=== PATIENT | female | born 1985 | race American Indian/Alaskan Native ===

== ENCOUNTER 2018-03-16 08:26 | Inpatient (IN) | payer SELFPAY ==
[2018-03-16 10:41] LABS: HCG Qualitative,Urine Negative (Negative)
[2018-03-16 10:44] LABS: Bacteria,Urine 1+ /HPF (Negative); Mucus,Urine 3+ /HPF
[2018-03-16 10:51] LABS: Bilirubin,Urine NEG (Negative); Blood,Urine NEG (Negative); Color,Urine Amber (Yellow)
[2018-03-16] MEDS ORDERED: NACL 0.9% 1000 ML 1,000 ML IV ONE (10:58)
[2018-03-16] MEDS ORDERED: ZOFRAN IV ONE (10:58)
[2018-03-16] MEDS ORDERED: MORPHINE IV ONE (10:58)
--- NOTE | 2018-03-16 11:03 | Emergency Department Report ---
<ZO MONROE - Last Filed: 03/16/18 16:41> ED General Adult HPI - General Chief complaint: Abdominal Pain Stated complaint: STOMACH PAIN Time Seen by Provider: 03/16/18 10:35 Source: patient Mode of arrival: Ambulatory Limitations: No Limitations - History of Present Illness Initial comments: She presents to emergency Department with chief complaint of abdominal pain started 2 days ago. Patient states she has a history of ovarian cysts but this feels different. She describes the pain as sharp in nature and radiating into her Rectum. Also complains nausea but denies vomiting or diarrhea -: Sudden Location: abdomen Radiation: other (pelvis) Severity scale (0 -10): 8 Quality: sharp, constant Consistency: constant Improves with: none Worsens with: movement Associated Symptoms: denies other symptoms Treatments Prior to Arrival: none - Related Data Allergies Allergy/AdvReac Type Severity Reaction Status Date / Time No Known Allergies Allergy Verified 03/16/18 09:12 ED Review of Systems Comment: All other systems reviewed and negative Constitutional: denies: chills, fever Eyes: denies: eye pain, eye discharge, vision change ENT: denies: ear pain, throat pain Respiratory: denies: cough, shortness of breath, wheezing Cardiovascular: denies: chest pain, palpitations Endocrine: no symptoms reported Gastrointestinal: abdominal pain. denies: nausea, diarrhea Genitourinary: denies: urgency, dysuria, discharge Musculoskeletal: denies: back pain, joint swelling, arthralgia Skin: denies: rash, lesions Neurological: denies: headache, weakness, paresthesias Psychiatric: denies: anxiety, depression Hematological/Lymphatic: denies: easy bleeding, easy bruising ED Past Medical Hx - Past Medical History Previous Medical History?: Yes Additional medical history: PID, ovarian cyst - Surgical History Past Surgical History?: No - Social History Smoking Status: Current Every Day Smoker Substance Use Type: Alcohol, Marijuana ED Physical Exam - General Limitations: No Limitations General appearance: alert, in no apparent distress - Head Head exam: Present: atraumatic, normocephalic - Eye Eye exam: Present: normal appearance, PERRL, EOMI - ENT ENT exam: Present: mucous membranes dry - Neck Neck exam: Present: normal inspection - Respiratory Respiratory exam: Present: normal lung sounds bilaterally. Absent: respiratory distress, wheezes, rales, rhonchi - Cardiovascular Cardiovascular Exam: Present: regular rate, normal rhythm. Absent: systolic murmur, diastolic murmur, rubs, gallop - GI/Abdominal GI/Abdominal exam: Present: soft, tenderness (diffusely tender to palpation), normal bowel sounds. 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 Absent: motor sensory deficit - Psychiatric Psychiatric exam: Present: normal affect, normal mood - Skin Skin exam: Present: warm, dry, intact, normal color. Absent: rash ED Medical Decision Making - Lab Data Result diagrams: 03/16/18 11:11 03/16/18 11:11 ED Disposition Clinical Impression: Tubo-ovarian abscess, Abdominal pain, Pelvic pain, Acute PID (pelvic inflammatory disease) Disposition: OP ADMIT IP TO THIS HOSP Condition: Stable Referrals: ARLINE LOUIS MD [Primary Care Provider] - 3-5 Days <BLAKE HERNANDEZ - Last Filed: 03/16/18 19:52> ED Review of Systems ROS: Stated complaint: STOMACH PAIN Other details as noted in HPI ED Course Vital Signs 03/16/18 03/16/18 03/16/18 09:12 11:21 18:18 Temperature 98.2 F 98.3 F Pulse Rate 88 86 Respiratory 18 16 16 Rate Blood Pressure 125/78 Blood Pressure 110/76 [Left] O2 Sat by Pulse 98 97 Oximetry ED Medical Decision Making - Lab Data Result diagrams: 03/16/18 11:11 03/16/18 11:11 - Radiology Data Radiology results: report reviewed Referring Physician: ZO MONROE Patient Name: SHANNAN VARGHESE Date of : 1985 Sex: Female Report Date: 2018-03-16 Report Status: Finalized Findings [facility] [address] [place] [address] Ultrasound Report Signed Patient: SHANNAN VARGHESE MR#: [id number] : 1985 Acct:[id number] Age/Sex: 32 / F ADM Date: 03/16/18 Loc: ED Attending Dr: Ordering Physician: ZO MONROE MD Date of Service: 03/16/18 Procedure(s): US pelvic complete Accession Number(s): [id number] cc: ZO MONROE MD FINAL REPORT PROCEDURE: US PELVIC COMPLETE TECHNIQUE: Real-time transabdominal sonography in multiple planes of pelvis was performed with image documentation. This examination was performed without Doppler. Vascular abnormalities, including ovarian torsion, will not be detectable without Doppler evaluation. CPT 80548 HISTORY: pelvic pain/Tubo Ovarian Abscess COMPARISON: No prior studies are available for comparison. FINDINGS: The report for this exam is generated using images from both the transabdominal and the transvaginal scan. The uterus is visualized in the midline and is anteverted measuring 7.4 x 3.2 x 5.3 centimeter. No uterine masses are seen. No evidence of intrauterine . The endometrial stripe measures 7 millimeters and is unremarkable. There is a complex density seen posterior to the uterus. This is also visualized on the CT scan. This appears to be oriented transversely measuring 9.8 x 2.9 x 10.3 centimeters. On this exam this appears to have a slightly thickened wall, on the CT scan there appears to be loop of bowel with some adjacent fluid. This may represent a loop of bowel resting in a small amount of ascites possibly an inflamed dilated fallopian tube. In the right adnexa there is a complex triangular- shaped fluid collection visualized measuring 3.6 x 2.3 x 2.9 centimeters with low-level echoes and lacy densities present. This appearance is nonspecific and could represent an abscess or hemorrhage. Ectopic could also present in this manner as could an endometrioma. In the left adnexa there is a large simple appearing cyst measuring 8.5 centimeters greatest diameter. This is likely arising from the left ovary. No other ovarian tissue is seen on the left. The right ovary other than the complex fluid collection is otherwise unremarkable. IMPRESSION: Large simple appearing cystic mass visualize left adnexa may represent cyst adenoma given its size. Very large functional cyst/follicle is possible. Complex cystic mass right adnexa appears to be adjacent to the right ovary and right fallopian tube may represent tubo-ovarian abscess, ectopic , endometrioma. Transversely oriented structure posterior to the uterus as described may represent a loop of small bowel with mild wall thickening lying within a small amount of ascites. As indicated above this could represent a thick wall fallopian tube.. IMPRESSION: Transcribed By: DFN Dictated By: JAYSHREE HUSTON MD Electronically Authenticated By: JAYSHREE HUSTON MD Signed Date/Time: 03/16/181920 Referring Physician: ZO MONROE Patient Name: SHANNAN VARGHESE Date of : 1985 Sex: Female Report Date: 2018-03-16 Report Status: [place] [address] Cat Scan Report Signed Patient: SHANNAN VARGHESE MR#: [id number] : 1985 Acct:[id number] Age/Sex: 32 / F ADM Date: 03/16/18 Loc: ED Attending Dr: Ordering Physician: ZO MONROE MD Date of Service: 03/16/18 Procedure(s): CT abdomen pelvis w con Accession Number(s): [id number] cc: ZO MONROE MD FINAL REPORT EXAM: CT ABDOMEN PELVIS W CON HISTORY: ab pain TECHNIQUE: CT of the abdomen and pelvis with IV contrast. Coronal and sagittal reconstructed imaging provided. PRIORS: None currently available. FINDINGS: ABDOMEN: Bibasilar dependent subsegmental atelectasis. Partially imaged heart is grossly unremarkable. Liver, gallbladder, spleen, pancreas, and adrenals are unremarkable. Kidneys: Symmetrical cortical enhancement and excretion. No hydronephrosis. No suspicious lesions. IVC is unremarkable. No aortic aneurysm or dissection. No periaortic or retroperitoneal mass or adenopathy. Mild wall thickening of the ascending and descending colon with mild stranding. No obvious wall thickening of the transverse colon. No obstructive pattern. Terminal ileum is thick wall. Distal small bowel loops are thick walled with fluid content and hyperemia. Mid small bowel loops are mildly thick walled. There is no thickening of the proximal small bowel loops. There may be some mild thickening of the stomach and duodenum. No obstructive pattern. Some air-fluid levels. Stranding of the distal mesentery. Gkes-jj-cdvqwsfz free fluid. PELVIS: Free fluid. Possible abscesses versus loops of small bowel. Bladder: Grossly unremarkable. Fluid collection in the posterior right bladder is separate from the bladder and may represent a loop of small bowel with fluid or diverticulum. Limited CT images of the uterus are unremarkable. There is no pelvic mass or adenopathy. Inguinal regions are unremarkable. Bones: No suspicious osseous lesions on this limited examination of the skeleton. Met astatic disease better evaluated with bone scan. IMPRESSION: Suspect wall thickening of the stomach, duodenum, pelvic bowel loops and the ascending and descending colon. Findings may represent enterocolitis. Zqzj-lq-wsdnvsxe free fluid. No free air. Fluid in the pelvis as well as the lack of oral contrast limits evaluation. Pelvic abscesses are not entirely excluded. Please correlate for pelvic inflammatory disease. No obstruction. Posterior right bladder diverticulum versus a loop of small bowel with fluid. Latter favored. Transcribed By: TYM Dictated By: HEATHER JOHN MD Electronically Authenticated By: HEATHER JOHN MD Signed Date/Time: 03/16/18 1505 DD/ 1455 TD/TT: 03/16/181454 DD/ 55 TD/TT: 03/16/181855 - Medical Decision Making She presents to emergency Department with chief complaint of abdominal pain started 2 days ago. Patient states she has a history of ovarian cysts but this feels different. She describes the pain as sharp in nature and radiating into her Rectum. Also complains nausea but denies vomiting or diarrhea. Patient ultrasound show a right tubo-ovarian abscess. I discussed the patient is Dr. Victoria he stated that he will admit the patient for IV antibiotic and further management. Critical care attestation.: If time is entered above; I have spent that time in minutes in the direct care of this critically ill patient, excluding procedure time. ED Disposition Is pt being admited?: Yes
[2018-03-16 11:34] LABS: Basophils # (Auto) 0.1 K/mm3 (0.0-0.1); Basophils % (Auto) 0.7 % (0.0-1.8); Eosinophils % (Auto) 0.1 % (0.0-4.3); Hematocrit 37.7 % (30.3-42.9); Hemoglobin 12.5 gm/dl (10.1-14.3); Lymphocytes # (Auto) 1.5 K/mm3 (1.2-5.4); Lymphocytes % (Auto) 8.4 % (13.4-35.0); Mean Corpuscular HGB Conc 33 % (30-34); Mean Corpuscular Volume 102 fl (79-97); Monocytes # (Auto) 1.2 K/mm3 (0.0-0.8); Monocytes % (Auto) 6.7 % (0.0-7.3); Platelet Count 393 K/mm3 (140-440); Red Cell Distribution Width 12.3 % (13.2-15.2)
[2018-03-16 11:50] LABS: Alanine Aminotransferase 10 units/L (7-56); Albumin 3.8 g/dL (3.9-5); BUN/Creatinine Ratio 14; Blood Urea Nitrogen 7 mg/dL (7-17); Calcium 9.3 mg/dL (8.4-10.2); Hemolysis Index 5
--- NOTE | 2018-03-16 15:05 | Cat Scan Report ---
FINAL REPORT EXAM: CT ABDOMEN PELVIS W CON HISTORY: ab pain TECHNIQUE: CT of the abdomen and pelvis with IV contrast. Coronal and sagittal reconstructed imaging provided. PRIORS: None currently available. FINDINGS: ABDOMEN: Bibasilar dependent subsegmental atelectasis. Partially imaged heart is grossly unremarkable. Liver, gallbladder, spleen, pancreas, and adrenals are unremarkable. Kidneys: Symmetrical cortical enhancement and excretion. No hydronephrosis. No suspicious lesions. IVC is unremarkable. No aortic aneurysm or dissection. No periaortic or retroperitoneal mass or adenopathy. Mild wall thickening of the ascending and descending colon with mild stranding. No obvious wall thick ening of the transverse colon. No obstructive pattern. Terminal ileum is thick wall. Distal small bowel loops are thick walled with fluid content and hypere power. Mid small bowel loops are mildly thick walled. There is no thickening of the proximal small christen l loops. There may be some mild thickening of the stomach and duodenum. No obstructive pattern. Some air-fluid levels. Stranding of the distal mesentery. Arwx-rl-aqthjvol free fluid. PELVIS: Free fluid. Possible abscesses versus loops of small bowel. Bladder: Grossly unremarkable. Fluid collection in the posterior right bladder is separate from the b ladder and may represent a loop of small bowel with fluid or diverticulum. Limited CT images of the uterus are unremarkable. There is no pelvic mass or adenopathy. Inguinal regions are unremarkable. Bones: No suspicious osseous lesions on this limited examination of the skeleton. Metastatic disease better evaluated with bone scan. IMPRESSION: Suspect wall thickening of the stomach, duodenum, pelvic bowel loops and the ascending and descending colon. Findings may represent enterocolitis. Anbh-ht-snewvwgf free fluid. No free air. Fluid in the pelvis as well as the lack of oral contrast limits evaluation. Pelvic abscesses are not entirely excl uded. Please correlate for pelvic inflammatory disease. No obstruction. Posterior right bladder diverticulum versus a loop of small bowel with fluid. Latter favored.
[2018-03-16] MEDS ORDERED: ZOFRAN IM ONE (15:53)
[2018-03-16] MEDS ORDERED: DILAUDID IM ONE (15:53)
[2018-03-16] MEDS ORDERED: ROCEPHIN IM ONE (15:55)
[2018-03-16] MEDS ORDERED: XYLOCAINE 1% MPF 5 mL INFILTRATI ONE (15:55)
--- NOTE | 2018-03-16 19:21 | Ultrasound Report ---
FINAL REPORT PROCEDURE: US TRANSVAGINAL TECHNIQUE: Real-time transvaginal sonography in multiple planes of the pelvis was performed with peter ge documentation. This examination was performed without Doppler. Vascular abnormalities, including o varian torsion, will not be detectable without Doppler evaluation. CPT 67451 HISTORY: pelvic pain COMPARISON: Transabdominal pelvic ultrasound and CT scan abdomen and pelvis also performed today. FINDINGS: The report for this exam is generated using images from both the transabdominal and the transvaginal scan. The uterus is visualized in the midline and is anteverted measuring 7.4 x 3.2 x 5.3 centimeter. No ut erine masses are seen. No evidence of intrauterine . The endometrial stripe measures 7 batsheva meters and is unremarkable. There is a complex density seen posterior to the uterus. This is also visualized on the CT scan. This appears to be oriented transversely measuring 9.8 x 2.9 x 10.3 centimeters. On this exam this appear s to have a slightly thickened wall, on the CT scan there appears to be loop of bowel with some adjac ent fluid. This may represent a loop of bowel resting in a small amount of ascites possibly an inflam ed dilated fallopian tube. In the right adnexa there is a complex triangular-shaped fluid collection visualized measuring 3.6 x 2.3 x 2.9 centimeters with low-level echoes and lacy densities present. Th is appearance is nonspecific and could represent an abscess or hemorrhage. Ectopic could al so present in this manner as could an endometrioma. In the left adnexa there is a large simple appear ing cyst measuring 8.5 centimeters greatest diameter. This is likely arising from the left ovary. No other ovarian tissue is seen on the left. The right ovary other than the complex fluid collection is otherwise unremarkable. IMPRESSION: Large simple appearing cystic mass visualize left adnexa may represent cyst adenoma given its size. Complex cystic mass right adnexa appears to be adjacent to the right ovary and right fallopian tube m ay represent tubo-ovarian abscess, ectopic , endometrioma. Transversely oriented structure posterior to the uterus as described may represent a loop of small matt wel with mild wall thickening lying within a small amount of ascites. As indicated above this could r epresent a thickened fallopian tube.. Facs Teacher consultation is recommended.
--- NOTE | 2018-03-16 19:21 | Ultrasound Report ---
FINAL REPORT PROCEDURE: US PELVIC COMPLETE TECHNIQUE: Real-time transabdominal sonography in multiple planes of pelvis was performed with image documentation. This examination was performed without Doppler. Vascular abnormalities, including ova lasha torsion, will not be detectable without Doppler evaluation. CPT 30959 HISTORY: pelvic pain/Tubo Ovarian Abscess COMPARISON: No prior studies are available for comparison. FINDINGS: The report for this exam is generated using images from both the transabdominal and the transvaginal scan. The uterus is visualized in the midline and is anteverted measuring 7.4 x 3.2 x 5.3 centimeter. No ut erine masses are seen. No evidence of intrauterine . The endometrial stripe measures 7 batsheva meters and is unremarkable. There is a complex density seen posterior to the uterus. This is also visualized on the CT scan. This appears to be oriented transversely measuring 9.8 x 2.9 x 10.3 centimeters. On this exam this appear s to have a slightly thickened wall, on the CT scan there appears to be loop of bowel with some adjac ent fluid. This may represent a loop of bowel resting in a small amount of ascites possibly an inflam ed dilated fallopian tube. In the right adnexa there is a complex triangular-shaped fluid collection visualized measuring 3.6 x 2.3 x 2.9 centimeters with low-level echoes and lacy densities present. Th is appearance is nonspecific and could represent an abscess or hemorrhage. Ectopic could al so present in this manner as could an endometrioma. In the left adnexa there is a large simple appear ing cyst measuring 8.5 centimeters greatest diameter. This is likely arising from the left ovary. No other ovarian tissue is seen on the left. The right ovary other than the complex fluid collection is otherwise unremarkable. IMPRESSION: Large simple appearing cystic mass visualize left adnexa may represent cyst adenoma given its size. V susan large functional cyst/follicle is possible. Complex cystic mass right adnexa appears to be adjacent to the right ovary and right fallopian tube m ay represent tubo-ovarian abscess, ectopic , endometrioma. Transversely oriented structure posterior to the uterus as described may represent a loop of small matt wel with mild wall thickening lying within a small amount of ascites. As indicated above this could r epresent a thick wall fallopian tube.. IMPRESSION:
[2018-03-16] MEDS ORDERED: TORADOL IV ONE (19:44)
[2018-03-16] MEDS ORDERED: TYLENOL PO PRN (20:39)
[2018-03-16] MEDS ORDERED: SODIUM CHLORIDE FLUSH SYRINGE 10 ML IV PRN (20:39)
[2018-03-16] MEDS ORDERED: ZOFRAN IV PRN (20:39)
[2018-03-16] MEDS ORDERED: GENTAMICIN/NS 80 MG/100 ML 100 ML IV SCH (23:00)
[2018-03-16] MEDS: D5NS 1,000 ML IV SCH (23:04)
--- NOTE | 2018-03-16 23:41 | History and Physical Report ---
History of Present Illness Date of examination: 03/16/18 Date of admission: 03/16/18 20:39 History of present illness: This is a 32-year-old black female para 0 who presented to emergency room with complaints of 5 days of lower abdominal pain nausea constipation. Patient workup in the ED revealed an right tubo-ovarian abscess and a large simple cysts on the left ovary visualized by both CT scan and pelvic ultrasound. Patient pain was treated with both morphine and Toradol to the severity. 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) Medications and Allergies Allergies Allergy/AdvReac Type Severity Reaction Status Date / Time No Known Allergies Allergy Verified 03/16/18 09:12 Active Meds: Active Medications Acetaminophen (Tylenol) 650 mg PO Q4H PRN PRN Reason: Pain MILD(1-3)/Fever >100.5/VARGAS Acetaminophen/Hydrocodone Bitart (Liberty 5/325) 2 each PO Q6H PRN PRN Reason: Pain, Moderate (4-6) Dextrose/Sodium Chloride (D5ns) 1,000 mls @ 125 mls/hr IV DIRECT HANSA Last Admin: 03/16/18 23:04 Dose: 125 mls/hr Documented by: Clindamycin HCl (Cleocin 900 Mg/50 Ml) 900 mg in 50 mls @ 100 mls/hr IV Q8HR HANSA; Protocol Ondansetron HCl (Zofran) 4 mg IV Q8H PRN PRN Reason: Nausea And Vomiting Sodium Chloride (Sodium Chloride Flush Syringe 10 Ml) 10 ml IV BID HANSA Sodium Chloride (Sodium Chloride Flush Syringe 10 Ml) 10 ml IV PRN PRN PRN Reason: LINE FLUSH Review of Systems Breasts: deferred Gastrointestinal: abdominal pain Genitourinary Female: pelvic pain, vaginal discharge (slight) Exam - Constitutional Vitals: Temp Pulse Resp BP Pulse Ox 99.4 F 86 18 122/83 99 03/16/18 21:53 03/16/18 21:53 03/16/18 21:53 03/16/18 21:53 03/16/18 21:24 General appearance: Present: no acute distress, well-nourished - Respiratory Respiratory effort: normal - Cardiovascular Rhythm: regular - Extremities Extremities: no ischemia - Abdominal General gastrointestinal: Present: soft, tender (bilateral lower quadrant right greater than the left) Localized gastrointestinal: tender: RLQ (equivalent rebound), LLQ, rebound: RLQ Female genitourinary: Present: deferred - Rectal Rectal Exam: deferred - Integumentary Integumentary: Present: clear, warm, dry - Psychiatric Psychiatric: appropriate mood/affect, intact judgment & insight - Neurologic Neurologic: moves all extremities Results - Labs CBC & Chem 7: 03/16/18 11:11 03/16/18 11:11 Labs: Abnormal lab results 03/16/18 03/16/18 03/16/18 Range/Units 09:50 11:11 11:11 WBC 18.4 H (4.5-11.0) K/mm3 MCV 102 H (79-97) fl MCH 34 H (28-32) pg RDW 12.3 L (13.2-15.2) % Lymph % (Auto) 8.4 L (13.4-35.0) % Dupage # 1.2 H (0.0-0.8) K/mm3 Seg Neutrophils % 84.1 H (40.0-70.0) % Seg Neutrophils # 15.5 H (1.8-7.7) K/mm3 Sodium 136 L (137-145) mmol/L Potassium 3.5 L (3.6-5.0) mmol/L Creatinine 0.5 L (0.7-1.2) mg/dL Glucose 104 H (65-100) mg/dL Albumin 3.8 L (3.9-5) g/dL Urine WBC (Auto) 48.0 H (0.0-6.0) /HPF U Epithel Cells (Auto) 23.0 H (0-13.0) /HPF - Imaging and Cardiology CT scan - pelvis: report reviewed Assessment and Plan - Patient Problems (1) Ovarian cyst Current Visit: Yes Status: Acute Qualifiers: Laterality: left Qualified Code(s): N83.202 - Unspecified ovarian cyst, left side Plan to address problem: Patient states that early 2017 she was diagnosed with large ovarian cyst that on slight improvement with oral contraceptives and previous physician desired to perform surgery but some how the patient got lost follow-up with that physician. She states the pain subsided. Large ovarian cysts seen on this ultrasound will need to follow and monitor patient (2) Tubo-ovarian abscess Current Visit: Yes Status: Acute Plan to address problem: Patient with elevated white count and appearance of abscess on radiological imaging. We'll admit and start IV antibiotics and monitor resolution of abscess. Did discuss possibility of fundal surgery if no resolution (3) Pelvic pain Current Visit: Yes Status: Acute
[2018-03-16] MEDS: CLEOCIN 900 MG/50 mL 900 MG/50 ML BAG IV SCH (23:56)
[2018-03-17] MEDS: NORCO 5/325 PO PRN ×4 (00:34→19:26)
[2018-03-17] MEDS: GENTAMICIN/NS 80 MG/100 ML 100 ML IV SCH ×3 (01:08→17:05)
[2018-03-17] MEDS: CLEOCIN 900 MG/50 mL 900 MG/50 ML BAG IV SCH ×3 (08:00→23:13)
[2018-03-17] MEDS: SODIUM CHLORIDE FLUSH SYRINGE 10 ML IV SCH ×2 (08:54→09:04)
[2018-03-17] MEDS: D5NS 1,000 ML IV SCH ×2 (08:54→17:13)
--- NOTE | 2018-03-17 09:46 | Progress Note ---
Assessment and Plan - Patient Problems (1) Acute PID (pelvic inflammatory disease) Current Visit: Yes Status: Acute Plan to address problem: Continue Gentmycin and Clindamycin (2) Tubo-ovarian abscess Current Visit: Yes Status: Acute Plan to address problem: Consider CT guided drainage if condition deteriorates vs surgical intervention (3) UTI (urinary tract infection) Current Visit: Yes Status: Acute Qualifiers: Urinary tract infection type: acute cystitis Plan to address problem: Culture order, Rocephin added to antibiotic regimen. She received a dose yesterday (4) Pelvic pain Current Visit: Yes Status: Acute (5) Ovarian cyst Current Visit: Yes Status: Acute Qualifiers: Laterality: left Qualified Code(s): N83.202 - Unspecified ovarian cyst, left side Plan to address problem: Observe for now, no obvious evidence of torsion Subjective Date of service: 03/17/18 Principal diagnosis: (R) TOA, (L) ovarian cyst, UTI, pelvic pain, PID Interval history: Ambulating without difficulty, denies N/V. States she has suprapubic pressure with urination. Tolerating regular diet. States pain that involved abdomen and pelvis was diffuse, no laterality, much improved now. Objective - Constitutional Vitals: Vital Signs - 12hr 03/16/18 03/17/18 03/17/18 21:53 01:34 02:05 Temperature 99.4 F 98.6 F Pulse Rate 86 74 Respiratory 18 18 Rate Blood Pressure Blood Pressure 122/83 86/59 [Left] O2 Sat by Pulse Oximetry 03/17/18 03/17/18 03/17/18 03:03 08:07 09:01 Temperature 97.7 F 98.6 F Pulse Rate 78 81 Respiratory 20 20 18 Rate Blood Pressure 112/66 102/55 Blood Pressure [Left] O2 Sat by Pulse 98 98 Oximetry General appearance: Present: no acute distress - Respiratory Respiratory effort: normal - Breasts Breasts: deferred - Cardiovascular Rhythm: regular Extremities: no ischemia, No edema - Gastrointestinal General gastrointestinal: Present: soft, non-tender, non-distended, normal bowel sounds - Genitourinary Female genitourinary: deferred - Psychiatric Psychiatric: appropriate mood/affect, intact judgment & insight, memory intact, cooperative - Labs CBC & Chem 7: 03/16/18 11:11 03/16/18 11:11 Labs: Abnormal lab results 03/16/18 03/16/18 03/16/18 Range/Units 09:50 11:11 11:11 WBC 18.4 H (4.5-11.0) K/mm3 MCV 102 H (79-97) fl MCH 34 H (28-32) pg RDW 12.3 L (13.2-15.2) % Lymph % (Auto) 8.4 L (13.4-35.0) % [place] # 1.2 H (0.0-0.8) K/mm3 Seg Neutrophils % 84.1 H (40.0-70.0) % Seg Neutrophils # 15.5 H (1.8-7.7) K/mm3 Sodium 136 L (137-145) mmol/L Potassium 3.5 L (3.6-5.0) mmol/L Creatinine 0.5 L (0.7-1.2) mg/dL Glucose 104 H (65-100) mg/dL Albumin 3.8 L (3.9-5) g/dL Urine WBC (Auto) 48.0 H (0.0-6.0) /HPF U Epithel Cells (Auto) 23.0 H (0-13.0) /HPF - Imaging and cardiology Other: report reviewed, image reviewed Medications & Allergies - Medications Allergies/Adverse Reactions: Allergies No Known Allergies Allergy (Verified 03/16/18 09:12) Active Medications: Generic Name Dose Route Start Last Admin Trade Name Freq PRN Reason Stop Dose Admin Acetaminophen 650 mg 03/16/18 20:39 Tylenol PO Q4H PRN Pain MILD(1-3)/Fever >100.5/VARGAS Acetaminophen/Hydrocodone Bitart 2 each 03/16/18 20:39 03/17/18 08:07 [place] 5/325 PO 2 each Q6H PRN Administration Pain, Moderate (4-6) Dextrose/Sodium Chloride 1,000 mls @ 125 mls/hr 03/16/18 21:00 03/17/18 08:54 D5ns IV 125 mls/hr DIRECT HANSA Administration Clindamycin HCl 900 mg in 50 mls @ 100 mls/hr 03/16/18 23:45 03/17/18 08:00 Cleocin 900 Mg/50 Ml IV 100 mls/hr Q8HR HANSA Administration Protocol Gentamicin Sulfate/Sodium Chloride 100 mls @ 200 mls/hr 03/17/18 00:00 03/17/18 08:54 Garamycin/Ns 80 Mg/100 Ml IV 200 mls/hr Q8H HANSA Administration Ceftriaxone Sodium 500 mg/ 50 mls @ 100 mls/hr 03/17/18 10:00 Sodium Chloride IV Q24HR HANSA Protocol Ondansetron HCl 4 mg 03/16/18 20:39 Zofran IV Q8H PRN Nausea And Vomiting Sodium Chloride 10 ml 03/16/18 22:00 03/17/18 09:04 Sodium Chloride Flush Syringe 10 Ml IV 10 ml BID HANSA Administration Sodium Chloride 10 ml 03/16/18 20:39 Sodium Chloride Flush Syringe 10 Ml IV PRN PRN LINE FLUSH
[2018-03-17] MEDS: ROCEPHIN 500 MG in NACL 0.9% 50 ML IV SCH (13:06)
[2018-03-18] MEDS: GENTAMICIN/NS 80 MG/100 ML 100 ML IV SCH ×3 (02:00→17:57)
[2018-03-18] MEDS: NORCO 5/325 PO PRN ×4 (02:23→20:38)
[2018-03-18] MEDS: D5NS 1,000 ML IV SCH ×2 (02:23→15:00)
[2018-03-18] MEDS: CLEOCIN 900 MG/50 mL 900 MG/50 ML BAG IV SCH ×3 (06:26→23:57)
--- NOTE | 2018-03-18 08:42 | Progress Note ---
Subjective Principal diagnosis: (R) TOA, (L) ovarian cyst, UTI, pelvic pain, PID Objective - Constitutional Vitals: Vital Signs - 12hr 03/17/18 03/18/18 03/18/18 21:09 00:07 06:28 Temperature 99.4 F 99.1 F 98.6 F Pulse Rate 81 78 68 Respiratory 20 20 20 Rate Blood Pressure 118/75 111/61 107/67 O2 Sat by Pulse 98 98 97 Oximetry - Labs CBC & Chem 7: 03/16/18 11:11 03/16/18 11:11 Medications & Allergies - Medications Allergies/Adverse Reactions: Allergies No Known Allergies Allergy (Verified 03/16/18 09:12) Active Medications: Generic Name Dose Route Start Last Admin Trade Name Freq PRN Reason Stop Dose Admin Acetaminophen 650 mg 03/16/18 20:39 Tylenol PO Q4H PRN Pain MILD(1-3)/Fever >100.5/VARGAS Acetaminophen/Hydrocodone Bitart 2 each 03/16/18 20:39 03/18/18 02:23 [place] 5/325 PO 2 each Q6H PRN Administration Pain, Moderate (4-6) Dextrose/Sodium Chloride 1,000 mls @ 125 mls/hr 03/16/18 21:00 03/18/18 02:23 D5ns IV 125 mls/hr DIRECT HANSA Administration Clindamycin HCl 900 mg in 50 mls @ 100 mls/hr 03/16/18 23:45 03/18/18 06:26 Cleocin 900 Mg/50 Ml IV 100 mls/hr Q8HR HANSA Administration Protocol Gentamicin Sulfate/Sodium Chloride 100 mls @ 200 mls/hr 03/17/18 00:00 03/18/18 02:00 Garamycin/Ns 80 Mg/100 Ml IV 200 mls/hr Q8H HANSA Administration Ceftriaxone Sodium 500 mg/ 50 mls @ 100 mls/hr 03/17/18 11:00 03/17/18 13:06 Sodium Chloride IV 100 mls/hr Q24HR HANSA Administration Protocol Ondansetron HCl 4 mg 03/16/18 20:39 03/17/18 19:26 Zofran IV 4 mg Q8H PRN Administration Nausea And Vomiting Sodium Chloride 10 ml 03/16/18 22:00 03/17/18 09:04 Sodium Chloride Flush Syringe 10 Ml IV 10 ml BID HANSA Administration Sodium Chloride 10 ml 03/16/18 20:39 Sodium Chloride Flush Syringe 10 Ml IV PRN PRN LINE FLUSH
[2018-03-18] MEDS: ROCEPHIN 500 MG in NACL 0.9% 50 ML IV SCH (12:06)
[2018-03-19] MEDS: GENTAMICIN/NS 80 MG/100 ML 100 ML IV SCH ×2 (02:01→10:09)
[2018-03-19] MEDS: NORCO 5/325 PO PRN ×2 (02:54→10:08)
[2018-03-19] MEDS: D5NS 1,000 ML IV SCH (02:54)
[2018-03-19] MEDS: CLEOCIN 900 MG/50 mL 900 MG/50 ML BAG IV SCH (07:51)
[2018-03-19] MEDS: ROCEPHIN 500 MG in NACL 0.9% 50 ML IV SCH (11:13)
--- NOTE | 2018-03-19 11:16 | Discharge Summary ---
Providers - Providers Date of Admission: 03/18/18 15:02 Date of discharge: 03/19/18 Attending physician: FERNY ZEPEDA 03/16/18 19:47 Consult to Physician [CONS] Stat Comment: Consulting Provider: FERNY ZEPEDA Physician Instructions: Reason For Exam: right tubal ovarian abscess Primary care physician: ARLINE LOUIS Hospitalization Reason for admission: tubo-ovarian abscess Condition: Good Hospital course: Please see H&P for details. Patient was admitted on with IV antibiotics course including gentamicin and clindamycin and Rocephin. During the patient's hospital stay her pain became progressively better and was nontender at time of discharge. Patient was afebrile greater than 24 hours at time of discharge. Patient cervical cultures returned as negative wet prep was positive for clue cells. Disposition: TO HOME OR SELFCARE - Discharge Diagnoses (1) Ovarian cyst Status: Acute Qualifiers: Laterality: left Qualified Code(s): N83.202 - Unspecified ovarian cyst, left side (2) Tubo-ovarian abscess Status: Acute (3) Pelvic pain Status: Acute Core Measure Documentation - Palliative Care Palliative Care/ Comfort Measures: Not Applicable - Core Measures Any of the following diagnoses?: none Exam - Constitutional Vitals: Temp Pulse Resp BP Pulse Ox 98.5 F 67 18 106/67 99 03/19/18 07:11 03/19/18 07:11 03/19/18 07:11 03/19/18 07:11 03/18/18 18:12 General appearance: Present: no acute distress - Respiratory Respiratory effort: normal - Cardiovascular Rhythm: regular - Extremities Extremities: no ischemia, pulses intact - Abdominal General gastrointestinal: Present: soft, non-tender - Rectal Rectal Exam: deferred - Integumentary Integumentary: Present: clear, warm, dry - Musculoskeletal Musculoskeletal: strength equal bilaterally - Psychiatric Psychiatric: appropriate mood/affect, intact judgment & insight Plan Activity: advance as tolerated Diet: regular Additional Instructions: Patient was given information about our office for follow-up in 1 week. Patient called office with fever chills nausea vomiting or pain uncontrolled with pain medicine. Follow up with: ARLINE LOUIS MD [Primary Care Provider] - 3-5 Days Forms: [facility] Discharge Summary, Discharge Signature Page Prescriptions: metroNIDAZOLE [Flagyl] 500 mg PO Q12HR #14 tab RX: Ibuprofen [Motrin 800 MG tab] 800 mg PO Q6H PRN #30 tablet PRN Reason: Pain RX: oxyCODONE /ACETAMINOPHEN [Percocet 5/325 mg] 1 - 2 tab PO Q4H PRN #10 tablet PRN Reason: Pain, Moderate RX: Doxycycline [Vibramycin CAP] 100 mg PO Q12HR #14 capsule
[2018-03-19 13:27] VITALS: BP 129/90
== END 2018-03-19 11:45 | disposition home or self-care (01) | DRG 758 ==
LOC: ED 08:26 → OB 20:39 → OBSVTOIN 03-18 15:02
PROVIDERS: ADMIT Obstetrics & Gynecology; ATTEND Obstetrics & Gynecology
DX: N70.93 Salpingitis and oophoritis, unspecified (principal); N30.00 Acute cystitis without hematuria; N83.202 Unspecified ovarian cyst, left side; F12.90 Cannabis use, unspecified, uncomplicated; N73.9 Female pelvic inflammatory disease, unspecified; F17.200 Nicotine dependence, unspecified, uncomplicated; Z72.89 Other problems related to lifestyle
CPT/HCPCS: 36415; 74177; 76830; 76856; 80053; 81001; 81025; 83690; 85025; 87086; 87116; 87210; 87591; G0378; J0696; J1170; J1580; J1885; J2270; J2405; J7030; J7042; Q9967

== ENCOUNTER 2019-08-10 00:48 | Emergency (ER) | payer SELFPAY ==
[2019-08-10 00:57] VITALS: BP 140/92
[2019-08-10 01:38] LABS: Basophils % (Auto) 0.4 % (0.0-1.8); Eosinophils # (Auto) 0.1 K/mm3 (0.0-0.4); Eosinophils % (Auto) 1.2 % (0.0-4.3); Hematocrit 41.4 % (30.3-42.9); Hemoglobin 14.1 gm/dl (10.1-14.3); Lymphocytes # (Auto) 2.2 K/mm3 (1.2-5.4); Lymphocytes % (Auto) 22.8 % (13.4-35.0); Mean Corpuscular HGB Conc 34 % (30-34); Mean Corpuscular Volume 104 fl (79-97); Monocytes % (Auto) 10.1 % (0.0-7.3); Platelet Count 303 K/mm3 (140-440); Red Blood Count 3.98 M/mm3 (3.65-5.03); Red Cell Distribution Width 12.7 % (13.2-15.2)
[2019-08-10 01:51] LABS: Bacteria,Urine 1+ /HPF (Negative); Bilirubin,Urine NEG (Negative); Blood,Urine NEG (Negative); Color,Urine Yellow (Yellow); Mucus,Urine 2+ /HPF; Protein,Urine <15 mg/dL mg/dL (Negative); Urobilinogen,Urine < 2.0 mg/dL (<2.0)
[2019-08-10 01:59] LABS: BUN/Creatinine Ratio 15; Blood Urea Nitrogen 9 mg/dL (7-17)
[2019-08-10 02:00] LABS: Alanine Aminotransferase 46 units/L (7-56); Albumin 4.4 g/dL (3.9-5); Calcium 9.6 mg/dL (8.4-10.2); Hemolysis Index 41
[2019-08-10] MEDS ORDERED: ACETAMINOPHEN 325 MG TAB PO ONE (02:44)
[2019-08-10] MEDS ORDERED: ACETAMINOPHEN 325 MG TAB ONE (02:47)
[2019-08-10] MEDS ORDERED: IBUPROFEN 600 MG TAB PO ONE (02:55)
--- NOTE | 2019-08-10 03:01 | Emergency Department Report ---
ED Abdominal Pain HPI - General Chief Complaint: Abdominal Pain Stated Complaint: ABD PAIN Time Seen by Provider: 08/10/19 02:54 Source: patient Mode of arrival: Ambulatory Limitations: No Limitations - History of Present Illness Initial Comments: 33-year-old -[place] female presents to the emergency room for acute abdominal pain that started yesterday morning. Patient admits to nausea but no vomiting no diarrhea no vaginal bleeding or vaginal discharge. Patient reports she took Tylenol at 8 PM and then at 11 PM last night. Patient has a history of PID and ovarian cyst. Last menstrual period was 07/18/2019. MD Complaint: abdominal pain Onset/Timin Location: suprapubic Radiation: none Migration to: no migration Severity scale (0 -10): 10 Quality: sharp Consistency: constant Improves With: nothing Worsens With: nothing Associated Symptoms: nausea. denies: vomiting, diarrhea, fever, constipation, dysuria Treatments Prior to Arrival: other (Acetaminophen) - Related Data LMP Date: 07/18/19 Previous Rx's Medication Instructions Recorded Last Taken Type DOXYCYCLINE Hyclate [Vibramycin 100 mg PO Q12HR #14 capsule 03/19/18 Unknown Rx CAP] Ibuprofen [Motrin 800 MG tab] 800 mg PO Q6H PRN #30 tablet 03/19/18 Unknown Rx metroNIDAZOLE [Flagyl] 500 mg PO Q12HR #14 tab 03/19/18 Unknown Rx oxyCODONE /ACETAMINOPHEN [Percocet 1 - 2 tab PO Q4H PRN #10 tablet 03/19/18 Unknown Rx 5/325 mg] Allergies Allergy/AdvReac Type Severity Reaction Status Date / Time No Known Allergies Allergy Verified 03/16/18 09:12 ED Review of Systems ROS: Stated complaint: ABD PAIN Other details as noted in HPI ED Past Medical Hx - Past Medical History Previous Medical History?: Yes Additional medical history: PID, ovarian cyst - Surgical History Past Surgical History?: No - Social History Smoking Status: Never Smoker Substance Use Type: Alcohol - Medications Home Medications: Home Medications Medication Instructions Recorded Confirmed Last Taken Type DOXYCYCLINE Hyclate [Vibramycin 100 mg PO Q12HR #14 capsule 03/19/18 Unknown Rx CAP] Ibuprofen [Motrin 800 MG tab] 800 mg PO Q6H PRN #30 tablet 03/19/18 Unknown Rx metroNIDAZOLE [Flagyl] 500 mg PO Q12HR #14 tab 03/19/18 Unknown Rx oxyCODONE /ACETAMINOPHEN [Percocet 1 - 2 tab PO Q4H PRN #10 tablet 03/19/18 Unknown Rx 5/325 mg] ED Physical Exam - General Limitations: No Limitations General appearance: alert, in distress - Head Head exam: Present: atraumatic, normocephalic - Eye Eye exam: Present: normal appearance - ENT ENT exam: Present: mucous membranes moist - Neck Neck exam: Present: normal inspection, full ROM - Respiratory Respiratory exam: Present: normal lung sounds bilaterally. Absent: respiratory distress - Cardiovascular Cardiovascular Exam: Present: regular rate, normal rhythm. Absent: systolic murmur, diastolic murmur, rubs, gallop - GI/Abdominal GI/Abdominal exam: Present: soft, tenderness. Absent: distended - Back Exam Back exam: Present: normal inspection, full ROM - Neurological Exam Neurological exam: Present: alert, oriented X3 - Psychiatric Psychiatric exam: Present: normal affect, normal mood - Skin Skin exam: Present: warm, dry, intact, normal color. Absent: rash ED Course Vital Signs 08/10/19 08/10/19 08/10/19 00:51 02:49 03:00 Temperature 98.6 F Pulse Rate 94 H Respiratory 18 20 22 Rate Blood Pressure 140/92 O2 Sat by Pulse 99 Oximetry ED Medical Decision Making - Lab Data Result diagrams: 08/10/19 01:15 08/10/19 01:15 - Radiology Data Radiology results: report reviewed Referring Physician:MICHELE Quigley Name:SHANNAN SANCHEZatient ID:[id number] of :[id number]:FemaleAccession:[id number] Date:[id number] Status:Finalized Findings [facility] [address] [place] [address] Ultrasound Report Signed Patient: SHANNAN VARGHESE MR#: [id number] : 1985 Acct:[id number] Age/Sex: 33 / F ADM Date: 08/10/19 Loc: ED Attending Dr: Ordering Physician: KARINA NAJERA Date of Service: 08/10/19 Procedure(s): US pelvic complete Accession Number(s): [id number] cc: KARINA NAJERA US pelvic complete INDICATION / CLINICAL INFORMATION: Acute pelvic pain. COMPARISON: Ultrasound 03/16/2018. FINDINGS: Uterus measures 7.2 x 3.7 x 5.8 cm. The endometrial echo complex measures 12 mm, within normal limits for the patient. Right ovary is not visualized. Within the left hemipelvis, there is a complex cystic collection which measures approximately 7 x 6 x 5 cm. This may be ovarian in etiology. Flow is seen in the left ovary. There is scant free fluid in the cul-de-sac. IMPRESSION: 1. Large 7 x 6 x 5 mm cystic lesion in the left hemipelvis. Most likely, this is ovarian in etiology. Sonographic follow-up is recommended to confirm resolution. 2. No uterine allergies. 3. Right ovary is not visualized. Signer Name: Emanuel Shea MD Signed: 08/10/2019 4:03 AM Workstation Name: [id number] [email or web address] [id number] Transcribed By: ÁNGELA Dictated By: Emanuel Shea MD Electronically Authenticated By: Emanuel Shea MD Signed Date/Time: 08/10/19402 DD/ 9 TD/TT: - Medical Decision Making 33-year-old -[place] female presents to the emergency room for acute abdominal pain that started yesterday morning. Patient admits to nausea but no vomiting no diarrhea no vaginal bleeding or vaginal discharge. Patient reports she took Tylenol at 8 PM and then at 11 PM last night. Patient has a history of PID and ovarian cyst. Last menstrual period was 07/18/2019. Ultrasound was ordered and done it shows patient has a left ovarian cyst which has been previous diagnosed here. Patient was given ibuprofen which appears to have helped her pain as she is sleeping comfortably. Take ibuprofen for pain management. Follow-up with the [facility] Critical care attestation.: If time is entered above; I have spent that time in minutes in the direct care of this critically ill patient, excluding procedure time. ED Disposition Clinical Impression: Pelvic pain, Ovarian cyst Disposition: TO HOME OR SELFCARE Is pt being admited?: No Does the pt Need Aspirin: No Condition: Stable Instructions: Abdominal Pain (ED), Ovarian Cyst (ED) Additional Instructions: Take ibuprofen for pain management. Follow-up with the [facility] Referrals: PRIMARY CARE, [Primary Care Provider] - 3-5 Days [facility] [Provider Group] - 3-5 Days [facility] [Provider Group] - 3-5 Days
--- NOTE | 2019-08-10 04:07 | Ultrasound Report ---
US pelvic complete INDICATION / CLINICAL INFORMATION: Acute pelvic pain. COMPARISON: Ultrasound 03/16/2018. FINDINGS: Uterus measures 7.2 x 3.7 x 5.8 cm. The endometrial echo complex measures 12 mm, within normal limits for the patient. Right ovary is not visualized. Within the left hemipelvis, there is a complex cystic collection which measures approximately 7 x 6 x 5 cm. This may be ovarian in etiology. Flow is seen in the left ovary. There is scant free fluid in the cul-de-sac. IMPRESSION: 1. Large 7 x 6 x 5 mm cystic lesion in the left hemipelvis. Most likely, this is ovarian in etiology. Sonographic follow-up is recommended to confirm resolution. 2. No uterine allergies. 3. Right ovary is not visualized. Signer Name: Emanuel Shea MD Signed: 08/10/2019 4:03 AM Workstation Name: [id number]
== END 2019-08-10 04:56 | disposition home or self-care (01) ==
LOC: ED 00:48
DX: N83.209 Unspecified ovarian cyst, unspecified side (principal); R10.2 Pelvic and perineal pain; Z79.899 Other long term (current) drug therapy
CPT/HCPCS: 36415; 76856; 80053; 81001; 84703; 85025; 87086